=== PATIENT | female | born 1995 | race African-American/Black ===

== ENCOUNTER 2018-02-17 08:03 | Emergency (ER) | payer OTHER, SELFPAY ==
--- OUTSIDE RECORDS SUMMARY | 2018-02-17 08:05 | XMS REPORT | Continuity of Care Document ---
:1995 Author Organization [facility] Address [address] [place] [address] Phone Unavailable Care Team Providers Name Role Phone PHYSICIAN, NO Primary Care Physician Unavailable Insurance Providers Guarantor Yari Quintero Address [address] [place] [address] Email [email or web address] [facility] Policy Number [id number] Subscriber's Name Yari Quintero Relationship Self / Same As Patient Group Number NA Group Name NA Advance Directives Directive Response Recorded Date/Time Advance Directive on File No 02/16/18 3:18pm Patient/Family Given Education Material R/T Y - 02/16/18..MA 02/16/18 3: 36pm Directives? Chief Complaint and Reason for Visit Chief Complaint Influenza Reason for Visit URI (upper respiratory infection) Problems Medical Problem Onset Date Status 36 weeks gestation of Unknown labor in third trimester with delivery Unknown Threatened miscarriage in early Unknown Acute Threatened miscarriage in early Unknown Acute Vaginal delivery Unknown Past Problems Medical Problem Onset Date Status Constipation Unknown Acute External hemorrhoid Unknown Acute Internal prolapsed hemorrhoids Unknown Acute URI (upper respiratory infection) Unknown Acute Medications Current Home Medications Medication Dose Units Route Directions Days Qty Instructions Start Date Ibuprofen 1 Tab ORAL Every 6 Hours 30 Tablet 10/01/17 (Motrin 800 As Needed as Mg*) 800 Mg Tab needed for Pain Social History Social History Problem Response Recorded Date/Time Onset Date Status Hx Physical Abuse No 02/16/2018 3:18pm Not Applicable Not Applicable Smoking Status Start Date Stop Date Never smoker Hospital Discharge Instructions No hospital discharge instruction information available. Plan of Care Discharge Date 02/16/18 4:01pm Instructions/Education Provided Upper Respiratory Infection, Adult Forms Provided Portal Welcome Letter Prescriptions See Medication Section Referrals NO PHYSICIAN Additional Instructions/Education otc cough and cold medication tylenol and ibuprofen for pain/fever drink plenty of fluids return for new or worsening of symptoms f/u with pcp if no improvement in 3 days Functional Status No functional status information available. Allergies, Adverse Reactions, Alerts No known allergies. Immunizations No immunization information available. Vital Signs Acute Vital Signs Vital Response Date/Time Blood Pressure 133/82 mm Hg 02/16/2018 4:01pm Pulse Pulse Rate (adult) 99 beats per minute (60 - 100) 02/16/2018 4:01pm Respiratory Rate 18 breaths per minute (10 - 24) 02/16/2018 4:01pm Temperature Source Oral 02/16/2018 4:01pm Height 5 ft 1 in 02/16/2018 3:18pm Weight 139 lb 02/16/2018 3:18pm Body Mass Index 26.3 kg/m^2 02/16/2018 3:18pm Results No relevant diagnostic test, laboratory data and/or discharge summary information available. Procedures No procedure information available. Encounters Encounter Location Arrival/Admit Date Discharge/Depart Date Attending Provider [place] 02/16/18 3:13pm 02/16/18 4:01pm [facility] Emergency Room [facility] Recent Diagnosis
[2018-02-17 08:32] LABS: Urine Blood 2+ (NEG); Urine Glucose NEGATIVE (NEG); Urine Protein 3+ (NEG)
[2018-02-17] MEDS ORDERED: NA CHLORIDE 0.9% 1,000 ML ONE ×2 (08:35→08:57)
[2018-02-17] MEDS ORDERED: CEFTRIAXONE/SWI 1gm 1 GM/10 ML SYR ONE (08:35)
[2018-02-17 08:46] LABS: Urine Bacteria >50 /HPF (<20); Urine Culture Reflex Order NOT NEEDED; Urine Mucus MOD /HPF (NONE SEEN); Urine RBC 20-50 /HPF (NONE SEEN)
[2018-02-17 08:58] LABS: Absolute Lymphocytes (CBC) 1.2 K/uL (0.7-4.9); Absolute Monocytes 2.7 K/uL (0.1-1.3); Absolute Neutrophil 14.5 K/uL (1.8-8.0); Basophils % 0.3 % (0-1.3); Hematocrit 35.4 % (36.0-45.0); Lymphocytes % 6.4 % (15.3-44.8); MPV 7.6 fL (7.6-11.3); Monocytes % 14.7 % (3.3-12.3); RBC Red Blood Cell Count 4.14 M/uL (3.86-4.86)
[2018-02-17] MEDS ORDERED: PROMETHAZINE 25 MG/ML VIAL ONE (08:58)
[2018-02-17 09:12] LABS: BUN Blood Urea Nitrogen 7 mg/dL (7-18); Bicarbonate 24 mmol/L (21-32); Glucose Level 105 mg/dL (74-106); Potassium 3.5 mmol/L (3.5-5.1); Sodium Level 139 mmol/L (136-145)
[2018-02-17 10:19] LABS: Blood Morphology Comment NOT SEEN (NOT SEEN); Platelet Estimate INCR; Urine White Blood Cell Casts OK
[2018-02-17] MEDS ORDERED: HYDROCODONE/APAP 5/325 MG TAB ONE (10:39)
--- NOTE | 2018-02-17 11:03 | ER ---
Nurse's Notes [facility] Name: Susan Quintero Age: 22 yrs Sex: Female : 1995 Arrival Date: 02/17/2018 Time: 08:07 Bed 16 Private MD: None, None Diagnosis: Urinary tract infection, site not specified;Dehydration Presentation: 02/17 08:14 Presenting complaint: Patient states: Headache, fever, chills, body aches, and cough x ph 2 days, denies N/V/D. Transition of care: patient was not received from another setting of care. Onset of symptoms was February 17, 2018. Risk Assessment: Do you want to hurt yourself or someone else? Patient reports no desire to harm self or others. Initial Sepsis Screen: Does the patient meet any 2 criteria? No. Patient's initial sepsis screen is negative. Does the patient have a suspected source of infection? No. Patient's initial sepsis screen is negative. Care prior to arrival: None. 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 - Social history:: Smoking status: Patient/guardian denies using tobacco. - Ebola Screening: : No symptoms or risks identified at this time. Screenin:01 Abuse screen: Denies threats or abuse. Denies injuries from another. Nutritional jl7 screening: No deficits noted. Tuberculosis screening: No symptoms or risk factors identified. Fall Risk IV access (20 points). Mental Status- Oriented to own ability (0 pts). Assessment: 08:15 General: Appears in no apparent distress. uncomfortable, Behavior is calm, cooperative, jl7 appropriate for age. Pain: Denies pain. Neuro: Level of Consciousness is awake, alert, obeys commands, Oriented to person, place, time, situation. Cardiovascular: Patient's skin is warm and dry. Respiratory: Airway is patent Respiratory effort is even, unlabored, Respiratory pattern is regular, symmetrical, Breath sounds are clear bilaterally. GI: Reports nausea, vomiting, Patient currently denies diarrhea. : Reports burning with urination. EENT: Throat is clear is pink. Derm: Skin is pink, warm \T\ dry. 09:15 Reassessment: Patient appears in no apparent distress at this time. No changes from jl7 previously documented assessment. Patient and/or family updated on plan of care and expected duration. Pain level reassessed. Patient is alert, oriented x 3, equal unlabored respirations, skin warm/dry/pink. 10:34 Reassessment: Patient appears in no apparent distress at this time. Patient and/or jl7 family updated on plan of care and expected duration. Pain level reassessed. Patient is alert, oriented x 3, equal unlabored respirations, skin warm/dry/pink. Patient states symptoms have not improved. Vital Signs: 08:15 BP 136 / 94; Pulse 135; Resp 22; Temp 98.5(TE); Pulse Ox 97% on R/A; Weight 63.05 kg; ph Height 5 ft. 1 in. (154.94 cm); 09:01 Pulse 103; Resp 14 S; Temp 99.4(O); Pulse Ox 100% on R/A; jl7 10:34 BP 136 / 99; Pulse 114; Resp 18 S; Temp 100.9(O); Pulse Ox 100% on R/A; jl7 08:15 Body Mass Index 26.26 (63.05 kg, 154.94 cm) ph ED Course: 08:07 Patient arrived in ED. mr 08:08 None, None is Private Physician. mr 08:09 Emperatriz Alicia, MARTA is Primary Nurse. jl7 08:09 Anju Velazquez FNP-C [facility]. snw 08:09 Alan Randhawa MD is Attending Physician. snw 08:15 Triage completed. ph 08:18 Arm band placed on Patient placed in an exam room. ph 08:29 Urine Culture Sent. mh5 08:29 Urine Microscopic Only Sent. 5 08:29 Flu Sent. 5 08:35 Missed attempt(s): 22 gauge in left hand. jl7 08:40 No provider procedures requiring assistance completed. Initial lab(s) drawn, by hi, jl7 sent to lab. Flu and/or RSV swab sent to lab. Inserted saline lock: 22 gauge in right hand, using aseptic technique. Blood collected. 09:01 Patient has correct armband on for positive identification. Bed in low position. Call jl7 light in reach. Side rails up X 1. Pulse ox on. NIBP on. Warm blanket given. 11:10 IV discontinued, intact, bleeding controlled, No redness/swelling at site. Pressure jl7 dressing applied. Administered Medications: 08:40 Drug: NS 0.9% 1000 ml Route: IV; Rate: 1 bolus; Site: right hand; jl7 09:40 Follow up: Response: No adverse reaction; IV Status: Completed infusion jl7 08:41 Drug: Rocephin 1 grams Route: IV; Rate: calculated rate; Site: right hand; jl7 08:44 Follow up: Response: No adverse reaction; IV Status: Completed infusion jl7 08:50 Drug: Phenergan 6.25 mg Route: IVP; Site: right hand; jl7 09:10 Follow up: Response: No adverse reaction; Nausea is decreased jl7 09:40 Drug: NS 0.9% 1000 ml Route: IV; Rate: 1 bolus; Site: right hand; jl7 11:00 Follow up: IV Status: Completed infusion jl7 10:35 Drug: [place] 5 mg-325 mg 2 tabs Route: PO; jl7 11:11 Follow up: Response: No adverse reaction jl7 Outcome: 11:02 Discharge ordered by . nely 11:10 Discharged to home ambulatory, with family. jl7 11:10 Condition: stable 11:10 Discharge instructions given to patient, family, Instructed on discharge instructions, follow up and referral plans. medication usage, Demonstrated understanding of instructions, follow-up care, medications, Prescriptions given X 2. 11:12 Patient left the ED. jl7 Addendum: 02/19/2018 08:25 Addendum: Culture Results: Positive urine culture. No further action required. Bacteria h b sensitive to prescribed antibiotic. Signatures: Anju Velazquez, LISA-C LEG BREAKER-Kim Casareza Arleen camilo Lacy Chowdary, RN RN Sana Garrett, Beth Schumacher RN [facility] Emperatriz Alicia RN RN jl7 Corrections: (The following items were deleted from the chart) 02/17 11:11 08:55 NS 0.9% 1000 ml IV at 1 bolus in right hand jl7 jl7
--- NOTE | 2018-02-17 11:03 | EDPHYS ---
Physician Documentation [facility] Name: Susan Quintero Age: 22 yrs Sex: Female : 1995 Arrival Date: 02/17/2018 Time: 08:07 Bed 16 Private MD: None, None ED Physician Alan Randhawa HPI: 02/17 08:35 This 22 yrs old Black Female presents to ER via Ambulatory with complaints of Flu snw Symptoms. 08:35 Associated signs and symptoms: Pertinent positives: fever, headache, malaise, myalgias. snw Modifying factors: The patient symptoms are alleviated by nothing. recent UTI, tooks abx x 7 days. The patient has been recently seen by a physician: other ED yest. 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 - Social history:: Smoking status: Patient/guardian denies using tobacco. - Ebola Screening: : No symptoms or risks identified at this time. ROS: 08:35 Eyes: Negative for injury, pain, redness, and discharge, ENT: Negative for injury, snw pain, and discharge, Neck: Negative for injury, pain, and swelling, Cardiovascular: Negative for chest pain, palpitations, and edema, Respiratory: Negative for shortness of breath, cough, wheezing, and pleuritic chest pain, Abdomen/GI: Negative for abdominal pain, nausea, vomiting, diarrhea, and constipation, Back: Negative for injury and pain, : Negative for injury, bleeding, discharge, and swelling, MS/Extremity: Negative for injury and deformity, Skin: Negative for injury, rash, and discoloration. 08:35 Constitutional: Positive for body aches, chills, fatigue, fever, malaise, poor PO intake. 08:35 Neuro: Positive for headache. Exam: 08:30 Head/Face: Normocephalic, atraumatic. Eyes: Pupils equal round and reactive to light, snw extra-ocular motions intact. Lids and lashes normal. Conjunctiva and sclera are non-icteric and not injected. Cornea within normal limits. Periorbital areas with no swelling, redness, or edema. ENT: Nares patent. No nasal discharge, no septal abnormalities noted. Tympanic membranes are normal and external auditory canals are clear. Oropharynx with no redness, swelling, or masses, exudates, or evidence of obstruction, uvula midline. Mucous membranes moist. Neck: Trachea midline, no thyromegaly or masses palpated, and no cervical lymphadenopathy. Supple, full range of motion without nuchal rigidity, or vertebral point tenderness. No Meningismus. Chest/axilla: Normal chest wall appearance and motion. Nontender with no deformity. No lesions are appreciated. 08:30 Respiratory: Lungs have equal breath sounds bilaterally, clear to auscultation and percussion. No rales, rhonchi or wheezes noted. No increased work of breathing, no retractions or nasal flaring. Abdomen/GI: Soft, non-tender, with normal bowel sounds. No distension or tympany. No guarding or rebound. No evidence of tenderness throughout. Back: No spinal tenderness. No costovertebral tenderness. Full range of motion. Skin: Warm, dry with normal turgor. Normal color with no rashes, no lesions, and no evidence of cellulitis. MS/ Extremity: Pulses equal, no cyanosis. Neurovascular intact. Full, normal range of motion. Neuro: Awake and alert, GCS 15, oriented to person, place, time, and situation. Cranial nerves II-XII grossly intact. Motor strength 5/5 in all extremities. Sensory grossly intact. Cerebellar exam normal. Normal gait. 08:30 Constitutional: The patient appears alert, awake, uncomfortable. 08:30 Cardiovascular: Rate: tachycardic, Rhythm: regular, Heart sounds: normal, Edema: is not appreciated. Vital Signs: 08:15 BP 136 / 94; Pulse 135; Resp 22; Temp 98.5(TE); Pulse Ox 97% on R/A; Weight 63.05 kg; ph Height 5 ft. 1 in. (154.94 cm); 09:01 Pulse 103; Resp 14 S; Temp 99.4(O); Pulse Ox 100% on R/A; jl7 10:34 BP 136 / 99; Pulse 114; Resp 18 S; Temp 100.9(O); Pulse Ox 100% on R/A; jl7 08:15 Body Mass Index 26.26 (63.05 kg, 154.94 cm) ph MDM: 08:09 Patient medically screened. snw 11:03 Data reviewed: vital signs, nurses notes. Data interpreted: Pulse oximetry: on room air snw is 100 %. Interpretation: normal. Counseling: I had a detailed discussion with the patient and/or guardian regarding: the historical points, exam findings, and any diagnostic results supporting the discharge/admit diagnosis, the presence of at least one elevated blood pressure reading (>120/80) during this emergency department visit, lab results, the need for outpatient follow up, for definitive care, to return to the emergency department if symptoms worsen or persist or if there are any questions or concerns that arise at home. Response to treatment: the patient's symptoms have markedly improved after treatment. Special discussion: Based on the history and exam findings, there is no indication for further emergent testing or inpatient evaluation. I discussed with the patient/guardian the need to see the primary care provider for further evaluation of the symptoms. 02/17 08:21 Order name: Flu; Complete Time: 08:53 snw 02/17 08:21 Order name: Urine Culture snw 02/17 08:21 Order name: Urine Microscopic Only; Complete Time: 08:47 snw 02/17 08:21 Order name: CBC with Diff; Complete Time: 10:21 snw 02/17 08:21 Order name: Chem 7; Complete Time: 09:31 snw 02/17 08:24 Order name: Urine Dipstick--Ancillary (enter results); Complete Time: 08:37 eb 02/17 08:21 Order name: Urine Test (obtain specimen); Complete Time: 08:29 snw 02/17 08:24 Order name: Urine --Ancillary (enter results); Complete Time: 08:37 eb 02/17 09:01 Order name: CBC Smear Scan; Complete Time: 10:21 EDMS 02/17 08:21 Order name: Urine Dipstick-Ancillary (obtain specimen); Complete Time: 08:29 snw 02/17 10:35 Order name: PO challenge; Complete Time: 10:37 snw Administered Medications: 08:40 Drug: NS 0.9% 1000 ml Route: IV; Rate: 1 bolus; Site: right hand; jl7 09:40 Follow up: Response: No adverse reaction; IV Status: Completed infusion jl7 08:41 Drug: Rocephin 1 grams Route: IV; Rate: calculated rate; Site: right hand; jl7 08:44 Follow up: Response: No adverse reaction; IV Status: Completed infusion jl7 08:50 Drug: Phenergan 6.25 mg Route: IVP; Site: right hand; jl7 09:10 Follow up: Response: No adverse reaction; Nausea is decreased jl7 09:40 Drug: NS 0.9% 1000 ml Route: IV; Rate: 1 bolus; Site: right hand; jl7 11:00 Follow up: IV Status: Completed infusion jl7 10:35 Drug: [place] 5 mg-325 mg 2 tabs Route: PO; jl7 11:11 Follow up: Response: No adverse reaction jl7 Disposition: 16:01 Co-signature as Attending Physician, Alan Randhawa MD I agree with the assessment and kdr plan of care. Disposition: 02/17/18 11:02 Discharged to Home. Impression: Urinary tract infection, site not specified, Dehydration. - Condition is Stable. - Discharge Instructions: Dehydration, Adult, Urinary Tract Infection, Adult, Rehydration, Adult. - Prescriptions for Augmentin 875- 125 mg Oral Tablet - take 1 tablet by ORAL route every 12 hours for 10 days; 20 tablet. promethazine 25 mg Oral Tablet - take 1 tablet by ORAL route every 6 hours As needed; 20 tablet. - Work release form, Medication Reconciliation Form, Thank You Letter, Antibiotic Education, Prescription Opioid Use form. - Follow up: Private Physician; When: 2 - 3 days; Reason: Recheck today's complaints, Continuance of care, Re-evaluation by your physician. Follow up: Emergency Department; When: As needed; Reason: Worsening of condition. Signatures: Dispatcher [employer] [facility] Alan Randhawa MD MD kdr Therrien, Shelly, FNP-C FNP-Lacy Eaton RN RN Emperatriz Alicia RN RN jl7 Corrections: (The following items were deleted from the chart) 11:12 11:02 02/17/2018 11:02 Discharged to Home. Impression: Urinary tract infection, site jl7 not specified; Dehydration. Condition is Stable. Discharge Instructions: Dehydration, Adult, Urinary Tract Infection, Adult, Rehydration, Adult. Prescriptions for Augmentin 875-125 mg Oral Tablet - take 1 tablet by ORAL route every 12 hours for 10 days; 20 tablet, promethazine 25 mg Oral Tablet - take 1 tablet by ORAL route every 6 hours As needed; 20 tablet. and Forms are Work release form, Medication Reconciliation Form, Thank You Letter, Antibiotic Education, Prescription Opioid Use. Follow up: Private Physician; When: 2 - 3 days; Reason: Recheck today's complaints, Continuance of care, Re-evaluation by your physician. Follow up: Emergency Department; When: As needed; Reason: Worsening of condition. snw
== END 2018-02-17 11:12 | disposition home or self-care (01) ==
LOC: ER 08:03
DX: E86.0 Dehydration (principal); N39.0 Urinary tract infection, site not specified
CPT/HCPCS: 36415; 80048; 81003; 81015; 81025; 85025; 87077; 87086; 87088; 87186; 87804; 96361; 96374; 96375; 99284; J0696; J2550; J7030